=== PATIENT | male | born 1960 | race Caucasian/White ===

== ENCOUNTER 2020-12-19 12:13 | Day surgery (SDC) | payer OTHER ==
[2020-12-17 11:03] VITALS: BMI 22.4
[2020-12-19] MEDS ORDERED: ROPIVACAINE HCL 0.5% 30ML VIAL ONE (13:22)
[2020-12-19] MEDS ORDERED: PROPOFOL 20 ML ONE ×2 (15:31)
[2020-12-19] MEDS ORDERED: MIDAZOLAM HCL 2 MG/2 ML SINGLE DOSE VIAL ONE ×2 (16:27)
[2020-12-19] MEDS ORDERED: ceFAZolin SODIUM 1 GM VIAL IVPB ONE (16:50)
[2020-12-19] MEDS ORDERED: ceFAZolin SODIUM 1 GM VIAL ONE (16:58)
[2020-12-19] MEDS ORDERED: ONDANSETRON 4 MG/2 ML VIAL IVPUSH PRN (18:18)
[2020-12-19] MEDS ORDERED: oxyCODONE HCL 5 MG TABLET PO PRN (18:18)
[2020-12-19] MEDS ORDERED: LACTATED RINGERS SOLUTION 1,000 ML IV SCH (18:30)
[2020-12-20 11:04] VITALS: BP 141/99; PULSE 70; TEMP 98.8
== END 2020-12-19 19:25 | disposition home or self-care (01) ==
LOC: JASU-SURG 12:13
PROVIDERS: ATTEND Orthopaedic Surgery
PROC: 0RNJ4ZZ Release Right Shoulder Joint, Percutaneous Endoscopic Approach (ICD-10-PCS; 2020-12-19)
PROC: 0LS34ZZ Reposition Right Upper Arm Tendon, Percutaneous Endoscopic Approach (ICD-10-PCS; principal; 2020-12-19 08:00)
DX: M75.41 Impingement syndrome of right shoulder (principal); M75.21 Bicipital tendinitis, right shoulder; S43.491A Other sprain of right shoulder joint, initial encounter; X58.XXXA Exposure to other specified factors, initial encounter; Y93.9 Activity, unspecified; Y92.9 Unspecified place or not applicable; Y99.9 Unspecified external cause status
CPT/HCPCS: 94760

== ENCOUNTER 2021-06-26 18:32 | Observation (INO) | payer OTHER ==
[2021-06-26] MEDS ORDERED: ACETAMINOPHEN 500 MG TABLET (FP) PO ONE (19:31)
[2021-06-26] MEDS ORDERED: ACETAMINOPHEN 325 MG TABLET (FP) ONE (19:53)
[2021-06-26 19:58] LABS: BASO % 0.6 % (0-2.0); EOS % 2.4 % (0-4.5); HEMATOCRIT 42.1 % (35.4-49); HEMOGLOBIN 14.4 GM/dL (11.7-16.9); LYMPH % 20.1 % (8-40); MCHC 34.2 g/dl (32.0-35.9); MEAN CELL VOLUME 87.9 fl (80-96); MEAN PLT VOLUME 9.5 fl (7.5-11.1); MONO % 8.6 % (3.8-10.2); NEUT % 68.3 % (42.8-82.8); PLATELET COUNT 152 10^3/uL (134-434); RBC 4.79 M/mm3 (4.00-5.60); RDW 12.4 % (11.9-15.9); WHITE BLOOD COUNT 8.5 K/mm3 (4.0-10.0)
[2021-06-26 20:19] LABS: CALCIUM 9.2 mg/dL (8.5-10.1)
[2021-06-26 20:20] LABS: ALBUMIN 4.2 g/dl (3.4-5.0); BLOOD UREA NITROGEN 12.8 mg/dL (7-18)
[2021-06-26 20:23] LABS: CREATININE 0.9 mg/dL (0.55-1.3)
[2021-06-26 20:24] LABS: BILIRUBIN,TOTAL 0.6 mg/dL (0.2-1)
[2021-06-26] MEDS ORDERED: ASPIRIN 325 MG TABLET PO ONE (23:43)
[2021-06-27] MEDS ORDERED: ATORVASTATIN CA 20 MG TABLET (FP) ONE (01:03)
[2021-06-27] MEDS: ATORVASTATIN CA 20 MG TABLET (FP) PO SCH ×2 (01:06→21:21)
[2021-06-27 07:50] LABS: CHLORIDE 104 mmol/L (98-107); SODIUM 139 mmol/L (136-145)
[2021-06-27 07:56] LABS: CALCIUM 9.2 mg/dL (8.5-10.1)
[2021-06-27 07:57] LABS: ANION GAP 5 MMOL/L (8-16); BLOOD UREA NITROGEN 10.3 mg/dL (7-18); CO2 31 mmol/L (21-32); GLUCOSE,RANDOM 103 mg/dL (74-106)
[2021-06-27 08:00] LABS: CREATININE 0.7 mg/dL (0.55-1.3)
[2021-06-27] MEDS ORDERED: METOPROLOL TARTRATE 25 MG TABLET (FP) ONE (08:44)
[2021-06-27] MEDS ORDERED: LISINOPRIL 5 MG TABLET ONE (08:44)
[2021-06-27] MEDS ORDERED: ASPIRIN 81 MG CHEWABLE TABLETS ONE (08:44)
[2021-06-27] MEDS ORDERED: LISINOPRIL 10 MG TABLET ONE (08:44)
[2021-06-27] MEDS: LISINOPRIL 10 MG TABLET PO SCH (09:00)
[2021-06-27] MEDS: METOPROLOL TARTRATE 25 MG TABLET (FP) PO SCH (09:00)
[2021-06-27] MEDS: ASPIRIN 81 MG CHEWABLE TABLETS PO SCH (09:00)
[2021-06-27] MEDS: HEPARIN NA (PORCINE) 5,000 UNITS/ML 1ML VIAL SQ SCH (21:21)
[2021-06-28 00:09] VITALS: BMI 22.4
[2021-06-28 07:24] VITALS: TEMP 98.3
[2021-06-28 08:09] VITALS: BP 125/78; PULSE 63
[2021-06-28] MEDS: METOPROLOL TARTRATE 25 MG TABLET (FP) PO SCH (09:14)
[2021-06-28] MEDS: LISINOPRIL 10 MG TABLET PO SCH (09:14)
[2021-06-28] MEDS: ASPIRIN 81 MG CHEWABLE TABLETS PO SCH (09:14)
[2021-06-28] MEDS: HEPARIN NA (PORCINE) 5,000 UNITS/ML 1ML VIAL SQ SCH (09:14)
== END 2021-06-28 13:51 | disposition home or self-care (01) ==
LOC: JER 18:32 → JERBED 22:49 → INTOOBSV 22:49 → UNDOADMOB 22:49 → J4W 06-27 19:41 → JERBED 06-27 19:41 → J4W 06-28 11:48
PROVIDERS: ADMIT Specialist; ATTEND Specialist
PROC: 3E023GC Introduction of Other Therapeutic Substance into Muscle, Percutaneous Approach (ICD-10-PCS; principal; 2021-06-28)
DX: I31.9 Disease of pericardium, unspecified (principal); R07.9 Chest pain, unspecified; I10 Essential (primary) hypertension; E78.5 Hyperlipidemia, unspecified; R77.8 Other specified abnormalities of plasma proteins; F17.210 Nicotine dependence, cigarettes, uncomplicated
CPT/HCPCS: 0241U-QW; 36415; 71046-TC-FY; 80048; 80053; 82550; 82553; 84484; 85025; 93005; 93010; 93306-TC; 96372; 99291; G0378; J1644